=== PATIENT | male | born 2000 | race African-American/Black ===

== ENCOUNTER 2020-04-22 13:15 | Emergency (ER) | payer OTHER ==
[2020-04-22 13:29] VITALS: BP 141/71
--- NOTE | 2020-04-22 13:46 | ED Physician Documentation ---
History of Present Illness - Stated complaint Stated Complaint: SOA/C RULE OUT - Chief complaint Chief Complaint: Resp - History obtained from History obtained from: Patient - History of Present Illness Timing: Prior to arrival, How many hours ago Pain level max: 8 - Additonal information Additional information: 19-year-old male presents to the emergency department for evaluation of feeling short of breath. He is in the [place] and just arrived in [place] from [place]. While in [place] he admits to attending large gatherings. This morning about 2 AM he felt restless in bed and was tossing and turning. This morning [place] went [place] [facility] [place] Com[place] COVID testing. However patient continued to feel like he was short of air therefore he was brought to the emergency department. In route with EMS he was given a breathing treatment which he reports resolved his symptoms. He does have a history of asthma but has not taken any medications for more than 4 years. He is not a smoker. Patient has no pleuritic chest pain. No unilateral leg swelling. No hemoptysis. Recently traveled to [place] via airplane but short flight. No history of PE or DVT. Patient denies fevers chills body aches. He has no loss of taste or smell. He does endorse a mild dry cough that began this a.m. Review of Systems Constitutional: denies: Fever, Chills, Myalgias Ears: denies: Loss of hearing, Ear pain, Drainage/discharge Nose: reports: Other (No loss of taste or smell). denies: Rhinorrhea / runny nose Cardiac: denies: Chest pain / pressure, Palpitations, Pedal edema, Calf pain Respiratory: reports: Dyspnea, Cough. denies: Hemoptysis, Wheezing GI: denies: Abdominal Pain, Abdominal Swelling, Nausea, Vomiting : denies: Dysuria Skin: denies: Rash, Lesions Neurologic: denies: Generalized weakness, Syncope, Seizure PD PAST MEDICAL HISTORY - Past Medical History Past Medical History: Yes Respiratory: Asthma - Past Surgical History Past Surgical History: No - Present Medications Home Medications: Ambulatory Orders Medication Instructions Recorded Confirmed Albuterol Sulf [Ventolin Hfa 1 - 2 puffs INH Q4HR PRN #1 inhaler 04/22/20 Inhaler] - Allergies Allergies/Adverse Reactions: Allergies Allergy/AdvReac Type Severity Reaction Status Date / Time Penicillins Allergy Rash Verified 04/22/20 13:29 - Social History Does the pt smoke?: No Smoking Status: Never smoker Does the pt drink ETOH?: Yes Does the pt have substance abuse?: No - Immunizations Immunizations are current?: No - POLST Patient has POLST: No PD ED PE NORMAL - General General: Alert and oriented X 3, No acute distress, Well developed/nourished - HEENT HEENT: PERRL, EOMI, Ears normal - Neck Neck: Supple, no meningeal sign, No adenopathy - Cardiac Cardiac: RRR, No murmur, No gallop - Respiratory Respiratory: No respiratory distress, Clear bilaterally - Abdomen Abdomen: Normal bowel sounds, Soft, Non tender, Non distended - Back Back: No CVA TTP, No spinal TTP - Derm Derm: Normal color - Neuro Neuro: Alert and oriented X 3, 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 This is a subjective finding only. - Patient has COVID-19 testing pending that was completed at the [facility]. - On exam he is not hypoxic. He is speaking in full sentences and has an labored non-tachypneic respirations. - He does report a history of asthma and feels that the albuterol given in route helped his symptoms. - Will defer pulmonary imaging at this time as he is not hypoxic has and has normal breath sounds - pt is PERC and wells criteria negative. low suspicion for PE - I do not feel that he would benefit from laboratory testing at this time as his exam is otherwise very normal. Will prescribe albuterol inhaler for use as needed at the [facility]. He is to remain in quarantine until his COVID-19 tests are known. Return precautions discussed for worsening symptoms. Departure - Departure Disposition: 01 Home, Self Care Clinical Impression: History of asthma Dyspnea Qualifiers: Dyspnea type: unspecified Qualified Code(s): R06.00 - Dyspnea, unspecified Condition: Stable Instructions: ED Dyspnea Shortness of Breath Prescriptions: Albuterol Sulf [Ventolin Hfa Inhaler] 1 - 2 puffs INH Q4HR PRN #1 inhaler PRN Reason: Shortness Of Air/Wheezing Comments: [place] and remain in quarantine until your COVID-19 tests are known. Your vital signs are normal today. Your lungs sound normal. I have prescribed an albuterol inhaler to help you with your shortness of breath since she reports that the medication given to you by the paramedics improved your symptoms. If you feel that your symptoms are worsening you cannot speak in full sentences have fevers or productive cough please return to the emergency department for further evaluation.
== END 2020-04-22 13:58 | disposition home or self-care (01) ==
LOC: ED 13:15
DX: J45.909 Unspecified asthma, uncomplicated (principal)
CPT/HCPCS: 99282; 99283

== ENCOUNTER 2021-10-03 13:31 | Emergency (ER) | payer OTHER ==
--- NOTE | 2021-10-03 14:43 | ED Physician Documentation ---
PD HPI ABD PAIN - Stated complaint Stated Complaint: ABD PX - Chief complaint Chief Complaint: Abd Pain - History obtained from History obtained from: Patient - Additional information Additional information: He is not a daily drinker but the last 2 nights he was drinking and woke up this morning with epigastric pain and vomiting. Not too bad. He was worried that he has alcohol poisoning. He also notes that yesterday he had some blood on the toilet paper with rectal pain. That is never happened to him before. Finally he also has inflamed nasal turbinate on the left that has failed topical steroid therapy and wonders what can be done. That has been going on for years. Review of Systems Constitutional: denies: Fever, Chills Cardiac: reports: Reviewed and negative Respiratory: reports: Reviewed and negative PD PAST MEDICAL HISTORY - Past Medical History Respiratory: Asthma - Past Surgical History Past Surgical History: No - Present Medications Home Medications: Ambulatory Orders Medication Instructions Recorded Confirmed Albuterol Sulf [Ventolin Hfa 1 - 2 puffs INH Q4HR PRN #1 inhaler 04/22/20 Inhaler] - Allergies Allergies/Adverse Reactions: Allergies Allergy/AdvReac Type Severity Reaction Status Date / Time Penicillins Allergy Rash Verified 10/03/21 13:47 - Social History Does the pt smoke?: No Smoking Status: Never smoker Does the pt drink ETOH?: Yes Does the pt have substance abuse?: No - Immunizations Immunizations are current?: No - POLST Patient has POLST: No PD ED PE NORMAL - Vitals Vital signs reviewed: Yes - General General: Alert and oriented X 3, No acute distress - Abdomen Abdomen: Normal bowel sounds, Soft, Non tender - Male Male : Other (He does have a small rectal fissure without tenderness or hemorrhoid, no active bleeding) - Neuro Neuro: Alert and oriented X 3, Normal speech Results - Vitals Vitals: Vital Signs - 24 hr 10/03/21 10/03/21 13:39 14:47 Temperature 36.5 C 36.6 C Heart Rate 69 64 Respiratory 16 16 Rate Blood Pressure 121/84 H 122/57 L O2 Saturation 99 100 Oxygen O2 Source Room air PD MEDICAL DECISION MAKING - ED course ED course: Gentleman with multiple complaints. He was reassured that he is not having alcohol poisoning at this point, but probably does have a little bit of alcoholic gastritis and just needs to lay off the alcohol for a bit. Also has a rectal fissure which seems minor and conservative care for that was advised as well and he had an ancillary complaint of a large nasal turbinate that did not respond to topical steroids and as such discussed he can follow-up with ENT at his leisure. Departure - Departure Disposition: 01 Home, Self Care Clinical Impression: Rectal fissure, Nasal turbinate hypertrophy Condition: Good Record reviewed to determine appropriate education?: Yes Instructions: ED Fissure Anal Ch Comments: As discussed for the rectal fissure, that should heal well without specific therapy. Just drink plenty of fluids so you keep your stools soft.. For the inflamed nasal turbinates since you have failed conservative therapy with nasal steroids you could ask your doctor to refer you to an hearing officer. The closest is in [place], the phone number is [phone]. Return for new or worsening symptoms. Do not drink alcohol for a few days. Forms: Activity restrictions Discharge Date/Time: 10/03/21 14:48
[2021-10-03 14:48] VITALS: BP 122/57
== END 2021-10-03 14:48 | disposition home or self-care (01) ==
LOC: ED 13:31
DX: K60.2 Anal fissure, unspecified (principal); J34.3 Hypertrophy of nasal turbinates
CPT/HCPCS: 99281; 99282

== ENCOUNTER 2022-09-11 17:09 | Emergency (ER) | payer OTHER ==
[2022-09-11 18:31] LABS: BASOPHILS % (AUTO) 0.6 %; EOSINOPHILS # (AUTO) 0.6 10^3/uL (0.0-0.7); EOSINOPHILS % (AUTO) 9.2 %; HCT - HEMATOCRIT 45.5 % (42.0-52.0); HGB - HEMOGLOBIN 15.2 g/dL (14.0-18.0); LYMPHOCYTES # (AUTO) 2.7 10^3/uL (1.5-3.5); LYMPHOCYTES % (AUTO) 43.8 %; MEAN CORPUSCULAR HEMOGLOBIN 27.2 pg (27.0-31.0); MEAN CORPUSCULAR HGB CONC 33.4 g/dL (32.0-36.0); MEAN CORPUSCULAR VOLUME 81.4 fL (80.0-94.0); MONOCYTES # (AUTO) 0.5 10^3/uL (0.0-1.0); MONOCYTES % (AUTO) 8.6 %; NEUTROPHILS # (AUTO) 2.3 10^3/uL (1.5-6.6); NEUTROPHILS % (AUTO) 37.5 %; PLT - PLATELET COUNT 285 10^3/uL (130-450); RED BLOOD COUNT 5.59 10^6/uL (4.70-6.10); RED CELL DISTRIBUTION WIDTH 13.6 % (12.0-15.0); WHITE BLOOD COUNT 6.2 x10^3/uL (4.8-10.8)
[2022-09-11 18:44] LABS: ALBUMIN 4.7 g/dL (3.2-5.5); ALBUMIN/GLOBULIN RATIO 1.1 (1.0-2.2); BILIRUBIN,TOTAL 0.7 mg/dL (0.2-1.0); CALCIUM 9.9 mg/dL (8.5-10.3); CREATININE 1.1 mg/dL (0.6-1.2); POTASSIUM 4.2 mmol/L (3.5-5.0); TOTAL PROTEIN 8.9 g/dL (6.7-8.2)
[2022-09-11] MEDS ORDERED: KETOROLAC 30 MG/ML VIAL IVP STA (18:46)
[2022-09-11] MEDS ORDERED: ONDANSETRON 4 MG/2 ML VIAL IVP STA (18:46)
[2022-09-11] MEDS ORDERED: SODIUM CHLORIDE 0.9% 1,000 ML IV STA (18:46)
--- NOTE | 2022-09-11 18:51 | ED Physician Documentation ---
History of Present Illness - Stated complaint Stated Complaint: NAUSEA,H/A - Chief complaint Chief Complaint: Abd Pain - History obtained from History obtained from: Patient - History of Present Illness Timing: Today Pain level max: 3 Pain level now: 3 - Additonal information Additional information: Patient is a 21-year-old male who presents to the emergency department with abdominal pain, nausea, vomiting and a headache today. He states that he did drink alcohol last night, approximately 5 shots and as well as several other alcoholic drinks. Worse with eating and drinking. Nothing makes it better. He states that that is not an unusual amount of alcohol for him. No fevers. No chills. Review of Systems Constitutional: denies: Fever, Chills Nose: denies: Rhinorrhea / runny nose, Congestion Respiratory: denies: Cough GI: reports: Abdominal Pain (Mild, epigastric, cramping), Nausea, Vomiting. denies: Hematemesis, Bloody / black stool : denies: Dysuria Skin: denies: Rash Musculoskeletal: denies: Neck pain, Back pain Neurologic: reports: Headache (Gradual onset, dull, aching, 3 out of 10) PD PAST MEDICAL HISTORY - Past Medical History Past Medical History: Yes Cardiovascular: None Respiratory: Asthma Neuro: None Endocrine/Autoimmune: None GI: None : None HEENT: None Psych: None Musculoskeletal: None Derm: None - Past Surgical History Past Surgical History: No - Present Medications Home Medications: Ambulatory Orders Medication Instructions Recorded Confirmed Albuterol Sulf [Ventolin Hfa 1 - 2 puffs INH Q4HR PRN #1 inhaler 04/22/20 09/11/22 Inhaler] Ondansetron Odt [Zofran] 4 mg TL Q6H PRN #10 tablet 09/11/22 - Allergies Allergies/Adverse Reactions: Allergies Allergy/AdvReac Type Severity Reaction Status Date / Time Penicillins Allergy Rash Verified 09/11/22 17:20 - Social History Does the pt smoke?: No Smoking Status: Never smoker Does the pt drink ETOH?: Yes Does the pt have substance abuse?: No - Immunizations Immunizations are current?: Yes - POLST Patient has POLST: No PD ED PE NORMAL - Vitals Vital signs reviewed: Yes - General General: Alert and oriented X 3, No acute distress - HEENT HEENT: Atraumatic, PERRL, Moist mucous membranes - Neck Neck: Supple, no meningeal sign - Cardiac Cardiac: RRR, Strong equal pulses - Respiratory Respiratory: No respiratory distress, Clear bilaterally - Abdomen Abdomen: Soft, Non tender, Non distended - Back Back: No CVA TTP, No spinal TTP - Derm Derm: Warm and dry - Extremities Extremities: No edema - Neuro Neuro: Alert and oriented X 3, rn emergency 2-12 intact, No motor deficit, No sensory deficit, Normal speech Eye Opening: Spontaneous Motor: Obeys Commands Verbal: Oriented GCS Score: 15 - Psych Psych: Normal mood, Normal affect Results - Vitals Vitals: Vital Signs - 24 hr 09/11/22 09/11/22 17:17 19:03 Temperature 36.6 C Heart Rate 77 76 Respiratory 16 16 Rate Blood Pressure 142/77 H 126/86 H O2 Saturation 100 100 Oxygen O2 Source Room air - Labs Labs: Laboratory Tests 09/11/22 09/11/22 09/11/22 18:24 18:24 19:10 WBC 6.2 RBC 5.59 Hgb 15.2 Hct 45.5 MCV 81.4 MCH 27.2 MCHC 33.4 RDW 13.6 Plt Count 285 MPV 10.0 Neut # (Auto) 2.3 Lymph # (Auto) 2.7 [place] # (Auto) 0.5 Eos # (Auto) 0.6 Baso # (Auto) 0.0 Absolute Nucleated RBC 0.00 Nucleated RBC % 0.0 Sodium 139 Potassium 4.2 Chloride 102 Carbon Dioxide 27 Anion Gap 10.0 BUN 18 Creatinine 1.1 Estimated GFR (MDRD) 101 Glucose 82 Calcium 9.9 Total Bilirubin 0.7 AST 19 ALT 13 Alkaline Phosphatase 54 Total Protein 8.9 H Albumin 4.7 Globulin 4.3 H Albumin/Globulin Ratio 1.1 Lipase 24 Urine Color YELLOW Urine Clarity CLEAR Urine pH 7.0 Ur Specific [place] 1.010 Urine Protein NEGATIVE Urine Glucose (UA) NEGATIVE Urine Ketones NEGATIVE Urine Occult Blood NEGATIVE Urine Nitrite NEGATIVE Urine Bilirubin NEGATIVE Urine Urobilinogen 0.2 (NORMAL) Ur Leukocyte Esterase NEGATIVE Ur Microscopic Review NOT INDICATED Urine Culture Comments NOT INDICATED PD MEDICAL DECISION MAKING - ED course Complexity details: reviewed results, re-evaluated patient, considered differential, d/w patient ED course: No significant lab abnormalities. Patient declines an IV. We will continue supportive care and have him follow-up with his doctor. Patient requests a work note. States he has to work tonight. Patient is well-appearing, nontoxic. Afebrile. Abdomen soft, nontender nondistended. Patient counseled regarding signs and symptoms for which I believe and urgent re-evaluation would be necessary. Patient with good understanding of and agreement to plan and is comfortable going home at this time This document was made in part using voice recognition software. While efforts are made to proofread this document, sound alike and grammatical errors may occur. Departure - Departure Disposition: 01 Home, Self Care Clinical Impression: Vomiting Qualifiers: Vomiting type: unspecified Nausea presence: with nausea Qualified Code(s): R11.2 - Nausea with vomiting, unspecified Condition: Good Instructions: ED Nausea Vomiting Follow-Up: your,doctor as needed [Other] Prescriptions: Ondansetron Odt [Zofran] 4 mg TL Q6H PRN #10 tablet PRN Reason: Nausea / Vomiting Comments: Your prescription was sent to [facility] in [place]. Drink plenty of fluids. Follow-up with your doctor for further care. Forms: Activity restrictions Discharge Date/Time: 09/11/22 19:35
[2022-09-11] MEDS ORDERED: ONDANSETRON ODT 4 MG TABLET TL STA (18:57)
[2022-09-11] MEDS ORDERED: ACETAMINOPHEN 325 MG TABLET PO STA (18:57)
[2022-09-11 19:04] VITALS: BP 126/86
[2022-09-11 19:17] LABS: BILIRUBIN,URINE NEGATIVE (NEGATIVE); GLUCOSE, URINE (UA) NEGATIVE (NEGATIVE); KETONES,URINE (UA) NEGATIVE (NEGATIVE); LEUKOCYTE ESTERASE, URINE NEGATIVE (NEGATIVE); NITRITE,URINE NEGATIVE (NEGATIVE); OCCULT BLOOD,URINE NEGATIVE (NEGATIVE); PROTEIN,URINE NEGATIVE (NEGATIVE); UROBILINOGEN,URINE 0.2 (NORMAL) E.U./dL (NORMAL)
[2022-09-11 19:18] LABS: CLARITY,URINE CLEAR (CLEAR)
== END 2022-09-11 19:35 | disposition home or self-care (01) ==
LOC: ED 17:09
DX: R11.2 Nausea with vomiting, unspecified (principal)
CPT/HCPCS: 36415; 80053; 81003; 83690; 85025; 99282; 99283; A9270; Q0162; 81001; 87086

== ENCOUNTER 2022-11-28 14:33 | Outpatient (CLI) | payer OTHER | END 2022-11-28 14:34 | disposition critical access hospital (66) | LOC: EMS 14:33 | DX: J02.9 Acute pharyngitis, unspecified (principal); R05.9 Cough, unspecified; R50.9 Fever, unspecified; R52 Pain, unspecified | CPT/HCPCS: A0425; A0429 ==

== ENCOUNTER 2022-11-28 14:53 | Emergency (ER) | payer OTHER ==
[2022-11-28] MEDS ORDERED: DEXAMETHASONE 10 MG/ML VIAL PO STA (15:06)
[2022-11-28] MEDS ORDERED: CHERRY SYRUP 10 ML UDC PO ONE (15:06)
[2022-11-28] MEDS ORDERED: IBUPROFEN 100 MG/5 ML UDC PO STA (15:06)
--- NOTE | 2022-11-28 15:09 | ED Physician Documentation ---
History of Present Illness - Stated complaint Stated Complaint: SORE THROAT - Chief complaint Chief Complaint: Heent - Additonal information Additional information: 22-year-old male presents to the emergency department via EMS for evaluation of sore throat and body aches. Symptoms began yesterday. He took 1 ibuprofen at home but had none other. The body aches concerned him and he did not feel safe driving thus he calls 911. He denies any sick contacts. No vomiting or diarrhea. He has normal phonation. No trismus. Denies any history of recurrent strep throat. He is not yet vaccinated for the flu. He is vaccinated for COVID. Review of Systems Constitutional: reports: Myalgias, Fatigue. denies: Fever Nose: reports: Congestion Throat: reports: Sore throat. denies: Dental pain / toothache, Oral lesions / sores Cardiac: reports: Reviewed and negative Respiratory: denies: Dyspnea, Cough GI: reports: Reviewed and negative : reports: Reviewed and negative PD PAST MEDICAL HISTORY - Past Medical History Past Medical History: Yes Cardiovascular: None Respiratory: Asthma Neuro: None Endocrine/Autoimmune: None GI: None : None HEENT: None Psych: None Musculoskeletal: None Derm: None - Past Surgical History Past Surgical History: No - Present Medications Home Medications: Ambulatory Orders Medication Instructions Recorded Confirmed Albuterol Sulf [Ventolin Hfa 1 - 2 puffs INH Q4HR PRN #1 inhaler 04/22/20 11/28/22 Inhaler] cephALEXin [Keflex] 500 mg PO BID #14 cap 11/28/22 - Allergies Allergies/Adverse Reactions: Allergies Allergy/AdvReac Type Severity Reaction Status Date / Time Penicillins Allergy Rash Verified 11/28/22 15:01 - Social History Does the pt smoke?: No Smoking Status: Never smoker Does the pt drink ETOH?: Yes Does the pt have substance abuse?: No - Immunizations Immunizations are current?: Yes - POLST Patient has POLST: No PD ED PE NORMAL - General General: Alert and oriented X 3, No acute distress, Well developed/nourished - HEENT HEENT: Atraumatic, Ears normal, Moist mucous membranes. No: Pharynx benign (Chronically and lower large tonsils/hypertrophy. No exudate. Posterior oropharynx is beefy red. Uvula is midline. No dysphonia. No trismus. 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 Eye Opening: Spontaneous Motor: Obeys Commands Verbal: Oriented GCS Score: 15 Results - Vitals Vitals: Vital Signs - 24 hr 11/28/22 11/28/22 15:01 15:44 Temperature 37.1 C 37.2 C Heart Rate 99 84 Respiratory 16 16 Rate Blood Pressure 126/75 122/84 H O2 Saturation 99 100 Oxygen O2 Source Room air - Labs Labs: Laboratory Tests 11/28/22 11/28/22 15:00 15:00 Influenza A (Rapid) Negative Influenza B (Rapid) Negative Group A Strep Rapid POSITIVE H PD Medical Decision Making - ED course Complexity details: reviewed results, re-evaluated patient, considered differential, d/w patient ED course: 22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 Clinically on exam he has not fairly erythematous posterior oropharynx but no secondary findings suggest peritonsillar abscess. Normal phonation and tolerating oral secretions with full range of motion of the neck. Doubt retropharyngeal abscess. Influenza testing was negative however his rapid strep is positive. Patient does have a penicillin allergy therefore we will treat him with Keflex twice daily for the next 10 days. This prescription sent to his preferred pharmacy. He was administered a dose of Decadron orally for throat pain and discomfort. He is advised Tylenol and ibuprofen [id number] for discomfort. We discussed the usual emergent return precautions. Departure - Departure Disposition: 01 Home, Self Care Clinical Impression: Strep pharyngitis Condition: Stable Record reviewed to determine appropriate education?: Yes Prescriptions: cephALEXin [Keflex] 500 mg PO BID #14 cap Comments: You came to the emergency department because you have had some body aches chills and a sore throat that began yesterday. Here in the emergency department your influenza testing was negative. However your rapid strep test was positive. In order to help manage your condition we are starting you on an antibiotic called Keflex. You will take this twice daily for the next 10 days. You are also given a single dose of Decadron here in the emergency department which should help with pain and inflammation over the next few days. I do recommend that you take Tylenol or ibuprofen [id number] for discomfort. Can gargle with warm salt water. In general I would expect with the antibiotics your symptoms are feeling markedly better over the next 48 to 72 hours. If any point you develop inability to tolerate your oral secretions or swallow, have a high-pitched voice, cannot open your mouth fully and please return immediately to the ER for a second evaluation.
[2022-11-28 15:25] LABS: RAPID STREP SCREEN POSITIVE (Negative)
[2022-11-28 15:45] VITALS: BP 122/84
[2022-11-28] MEDS ORDERED: cephALEXin 250 MG CAPSULE PO STA (15:49)
== END 2022-11-28 15:57 | disposition home or self-care (01) ==
LOC: EDUNIT# → ED 14:53
DX: J02.0 Streptococcal pharyngitis (principal); Z88.0 Allergy status to penicillin
CPT/HCPCS: 87275; 87276; 87430; 99283; A9270

== ENCOUNTER 2023-02-14 19:23 | Emergency (ER) | payer OTHER ==
[2023-02-14 20:02] VITALS: BP 129/73
--- NOTE | 2023-02-14 21:38 | ED Physician Documentation ---
PD HPI URI - Stated complaint Stated Complaint: THROAT PX - Chief complaint Chief Complaint: Heent - History obtained from History obtained from: Patient (22-year-old gentleman who had strep a couple months ago presents with sore throat since yesterday worried that he has strep again. He had some subjective fevers this morning. No cough.) PD PAST MEDICAL HISTORY - Past Medical History Cardiovascular: None Respiratory: Asthma Neuro: None Endocrine/Autoimmune: None GI: None : None HEENT: None Psych: None Musculoskeletal: None Derm: None Other Past Medical History: Sickle cell trait - Past Surgical History Past Surgical History: No - Present Medications Home Medications: Ambulatory Orders Medication Instructions Recorded Confirmed Albuterol Sulf [Ventolin Hfa 1 - 2 puffs INH Q4HR PRN #1 inhaler 04/22/20 02/14/23 Inhaler] - Allergies Allergies/Adverse Reactions: Allergies Allergy/AdvReac Type Severity Reaction Status Date / Time Penicillins Allergy Rash Verified 02/14/23 20:02 - Social History Does the pt smoke?: No Smoking Status: Never smoker Does the pt drink ETOH?: Yes Does the pt have substance abuse?: No - Immunizations Immunizations are current?: Yes - POLST Patient has POLST: No PD ED PE NORMAL - Vitals Vital signs reviewed: Yes - General General: Alert and oriented X 3, No acute distress - HEENT HEENT: Other (Red tonsillar pillars without exudate. No swelling.) - Neck Neck: Supple, no meningeal sign, No bony TTP - Neuro Neuro: Alert and oriented X 3, Normal speech - Psych Psych: Normal mood, Normal affect Results - Vitals Vitals: Vital Signs - 24 hr 02/14/23 02/14/23 20:00 21:44 Temperature 36.4 C L Heart Rate 80 Respiratory 15 16 Rate Blood Pressure 129/73 O2 Saturation 99 Oxygen O2 Source Room air - Labs Labs: Laboratory Tests 02/14/23 21:34 Group A Strep Rapid Negative Departure - Departure Disposition: Home, Self Care Clinical Impression: Sore throat Condition: Good Record reviewed to determine appropriate education?: Yes Instructions: ED Pharyngitis Viral Report Pending Comments: Your rapid strep test is negative. That does not completely rule out a bacterial cause of your sore throat we will perform a throat culture. If positive we will call you in the next couple of days and call you on antibiotics. Return for new or worsening symptoms. You can take ibuprofen as needed for the pain. Forms: Activity restrictions Discharge Date/Time: 02/14/23 22:05
[2023-02-14 21:49] LABS: RAPID STREP SCREEN Negative (Negative)
== END 2023-02-14 22:05 | disposition home or self-care (01) ==
LOC: ED 19:23
DX: J02.9 Acute pharyngitis, unspecified (principal)
CPT/HCPCS: 87070; 87430; 99282; 99283

== ENCOUNTER 2023-04-17 02:06 | Emergency (ER) | payer OTHER ==
[2023-04-17] MEDS ORDERED: KETOROLAC 60 MG/2 ML VIAL IM STA (02:48)
--- NOTE | 2023-04-17 02:50 | ED Physician Documentation ---
PD HPI HEADACHE - Stated complaint Stated Complaint: HEAD PX - Chief complaint Chief Complaint: Heent - History obtained from History obtained from: Patient - Additional information Additional information: Patient is a 22-year-old male with a history of migraines presenting for evaluation of a frontal headache that is been present since Monday afternoon. Patient denies any exertion at onset. States that it is gradually been worsening. He tried 1 tablet of regular strength Tylenol twice this afternoon without any improvement. 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 Does not take a blood thinner. Review of Systems Constitutional: denies: Fever Cardiac: denies: Chest pain / pressure Respiratory: denies: Dyspnea GI: denies: Abdominal Pain Neurologic: reports: Headache PD PAST MEDICAL HISTORY - Past Medical History Cardiovascular: None Respiratory: Asthma Neuro: None Endocrine/Autoimmune: None GI: None : None HEENT: None Psych: None Musculoskeletal: None Derm: None - Past Surgical History Past Surgical History: No - Present Medications Home Medications: Ambulatory Orders Medication Instructions Recorded Confirmed Albuterol Sulf [Ventolin Hfa 1 - 2 puffs INH Q4HR PRN #1 inhaler 04/22/20 02/14/23 Inhaler] - Allergies Allergies/Adverse Reactions: Allergies Allergy/AdvReac Type Severity Reaction Status Date / Time Penicillins Allergy Rash Verified 02/14/23 20:02 - Social History Does the pt smoke?: No Smoking Status: Never smoker Does the pt drink ETOH?: Yes Does the pt have substance abuse?: No - Immunizations Immunizations are current?: Yes - POLST Patient has POLST: No PD ED PE NORMAL - General General: Alert and oriented X 3, No acute distress, Well developed/nourished - HEENT HEENT: Atraumatic, PERRL, EOMI, Moist mucous membranes, Pharynx benign - Neck Neck: Supple, no meningeal sign - Cardiac Cardiac: RRR, No murmur - Respiratory Respiratory: No respiratory distress, Clear bilaterally - Abdomen Abdomen: Soft, Non tender - Derm Derm: Warm and dry - Extremities Extremities: No edema - Neuro Neuro: Alert and oriented X 3, 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 Not thunderclap, sudden headache or worst headache of his life. No associated symptoms such as nausea or vomiting, fever, nuchal rigidity. Patient is overall well-appearing with normal neuro exam. Appears comfortable with exam room lights on.Has only tried small doses of acetaminophen. Patient was given IM Toradol with significant improvement in his symptoms. Patient also requested additional dose of acetaminophen prior to discharge. Based on history and exam I do not think patient has symptoms to suggest a subarachnoid hemorrhage or meningitis. The patient was counseled to continue with supportive care as well as [facility] He is advised on concerning symptoms to return for. Departure - Departure Disposition: 01 Home, Self Care Clinical Impression: Headache Condition: Stable Instructions: ED Cephalgia Unspecified Follow-Up: BELA Nguyen [Provider Group] - Within 1 week Comments: Please make sure you stay hydrated, get plenty of rest. You can continue with acetaminophen or ibuprofen as needed for any continued pain. If you develop any worsening symptoms please consider return to the ER. Forms: Activity restrictions
[2023-04-17] MEDS ORDERED: ACETAMINOPHEN 500 MG TABLET PO STA (03:55)
[2023-04-17 04:16] VITALS: BP 127/81
== END 2023-04-17 04:12 | disposition home or self-care (01) ==
LOC: ED 02:06
DX: R51.9 Headache, unspecified (principal)
CPT/HCPCS: 96372; 99283; A9270

== ENCOUNTER 2023-04-27 10:30 | Outpatient (CLI) | payer OTHER ==
[2023-04-27 20:25] LABS: CHLAMYDIA TRACHOMATIS DNA NEGATIVE (NEGATIVE); TRICHOMONAS VAGINALIS DNA NEGATIVE (NEGATIVE)
[2023-04-27 20:26] LABS: NEISSERIA GONORRHOEAE DNA POSITIVE (NEGATIVE)
[2023-04-29 03:09] LABS: RPR Non Reactive (Non Reactive)
[2023-04-29 04:08] LABS: HIV SCREEN 4TH GENERATION Non Reactive (Non Reactive)
== END 2023-04-27 10:45 | disposition home or self-care (01) ==
LOC: LAB.N 10:30
PROVIDERS: ATTEND Specialist
DX: R36.9 Urethral discharge, unspecified (principal)
CPT/HCPCS: 86592; 87389; 87491; 87591; 87661

== ENCOUNTER 2023-05-15 09:21 | Emergency (ER) | payer OTHER ==
[2023-05-15 09:56] LABS: BASOPHILS % (AUTO) 0.7 %; EOSINOPHILS # (AUTO) 0.5 10^3/uL (0.0-0.7); EOSINOPHILS % (AUTO) 9.6 %; HCT - HEMATOCRIT 47.2 % (42.0-52.0); HGB - HEMOGLOBIN 15.6 g/dL (14.0-18.0); LYMPHOCYTES # (AUTO) 2.4 10^3/uL (1.5-3.5); LYMPHOCYTES % (AUTO) 43.4 %; MEAN CORPUSCULAR HEMOGLOBIN 27.4 pg (27.0-31.0); MEAN CORPUSCULAR HGB CONC 33.1 g/dL (32.0-36.0); MEAN CORPUSCULAR VOLUME 82.8 fL (80.0-94.0); MEAN PLATELET VOLUME 10.3 fL (7.4-11.4); MONOCYTES # (AUTO) 0.5 10^3/uL (0.0-1.0); MONOCYTES % (AUTO) 8.8 %; NEUTROPHILS % (AUTO) 37.3 %; PLT - PLATELET COUNT 297 10^3/uL (130-450); RED CELL DISTRIBUTION WIDTH 13.3 % (12.0-15.0); WHITE BLOOD COUNT 5.4 x10^3/uL (4.8-10.8)
--- NOTE | 2023-05-15 10:07 | ED Physician Documentation ---
PD HPI CHEST PAIN - Stated complaint Stated Complaint: SOA,CHEST PX - Chief complaint Chief Complaint: Cardiac - History obtained from History obtained from: Patient - Additional information Additional information: Otherwise healthy 22-year-old gentleman with asthma developed some sharp chest pain this morning that is worse with leaning forward or deep breathing. He was short of breath with it. No personal family history of heart disease. No pedal edema or calf pain. No cough or hemoptysis. He went to the walk-in clinic where an EKG was concerning for pericarditis and referred here for further evaluation and treatment. PD PAST MEDICAL HISTORY - Past Medical History Cardiovascular: None Respiratory: Asthma Neuro: None Endocrine/Autoimmune: None GI: None : None HEENT: None Psych: None Musculoskeletal: None Derm: None - Past Surgical History Past Surgical History: No - Present Medications Home Medications: Ambulatory Orders Medication Instructions Recorded Confirmed Albuterol Sulf [Ventolin Hfa 1 - 2 puffs INH Q4HR PRN #1 inhaler 04/22/20 05/15/23 Inhaler] Colchicine [Colcrys] 0.6 mg PO DAILY #90 tablet 05/15/23 Ibuprofen [Motrin] 600 mg PO Q6H PRN #30 tab 05/15/23 - Allergies Allergies/Adverse Reactions: Allergies Allergy/AdvReac Type Severity Reaction Status Date / Time Penicillins Allergy Rash Verified 05/15/23 09:25 - Social History Does the pt smoke?: No Smoking Status: Never smoker Does the pt drink ETOH?: Yes Does the pt have substance abuse?: No - Immunizations Immunizations are current?: Yes - POLST Patient has POLST: No PD ED PE NORMAL - Vitals Vital signs reviewed: Yes - General General: Alert and oriented X 3, No acute distress - Neck Neck: Supple, no meningeal sign, No bony TTP - Cardiac Cardiac: RRR, No murmur - Respiratory Respiratory: No respiratory distress, Clear bilaterally - Abdomen Abdomen: Non tender - Extremities Extremities: No edema, No calf tenderness / cord - Neuro Neuro: Alert and oriented X 3, Normal speech Results - Vitals Vitals: Vital Signs - 24 hr 05/15/23 05/15/23 09:25 10:50 Temperature 36.9 C 37.1 C Heart Rate 77 67 Respiratory 16 14 Rate Blood Pressure 130/76 147/88 H O2 Saturation 98 98 Oxygen O2 Source Room air - EKG (time done) 0948 EKG releavant findings:: EKG personally interpreted by author of this note. Relevant findings are: Rate: Rate (enter#) (71) Rhythm: NSR [place]: Normal Intervals: Normal IA QRS: Normal Ischemia: Other (ROGER diffuse c/w pericarditis) Computer interpretation: Agree with computer - Labs Labs: Laboratory Tests 05/15/23 05/15/23 05/15/23 09:49 09:49 09:49 WBC 5.4 RBC 5.70 Hgb 15.6 Hct 47.2 MCV 82.8 MCH 27.4 MCHC 33.1 RDW 13.3 Plt Count 297 MPV 10.3 Neut # (Auto) 2.0 Lymph # (Auto) 2.4 [place] # (Auto) 0.5 Eos # (Auto) 0.5 Baso # (Auto) 0.0 Absolute Nucleated RBC 0.00 Nucleated RBC % 0.0 Sodium 140 Potassium 3.9 Chloride 104 Carbon Dioxide 29 Anion Gap 7.0 BUN 14 Creatinine 1.1 Estimated GFR (MDRD) 101 Glucose 90 Calcium 10.5 H Total Bilirubin 0.8 AST 22 ALT 11 Alkaline Phosphatase 56 Troponin I High Sens 3.4 Total Protein 8.7 Albumin 4.9 Globulin 3.8 Albumin/Globulin Ratio 1.3 Lipase 20 PD Medical Decision Making - ED course ED course: 22-year-old gentleman with pericarditis. No evidence of myopericarditis with negative troponin. CBC and CMP were otherwise unremarkable. We will start colchicine, up-to-date reviewed and note the colchicine dosing is borderline as he weighs 69.9 kg and the cutoff for twice daily versus daily is 70 kg. Otherwise he will be treated with NSAIDs. Departure - Departure Disposition: 01 Home, Self Care Clinical Impression: Pericarditis Qualifiers: Pericarditis type: idiopathic Chronicity: acute Qualified Code(s): I30.0 - Acute nonspecific idiopathic pericarditis Condition: Good Record reviewed to determine appropriate education?: Yes Instructions: ED Chest Pain Pericarditis Prescriptions: Colchicine [Colcrys] 0.6 mg PO DAILY #90 tablet Ibuprofen [Motrin] 600 mg PO Q6H PRN #30 tab PRN Reason: Pain Comments: You were seen today for pericarditis which is an inflammation of the sac around the heart. There is no evidence of inflammation of the heart itself. I am prescribing 2 medications. Ibuprofen which will help with the discomfort and pain and colchicine which should make it go away faster. Call your doctor to arrange a follow-up appointment, make the next available appointment. In the interim, return anytime if worse or if new symptoms develop. Discharge Date/Time: 05/15/23 10:51
[2023-05-15 10:12] LABS: ALBUMIN 4.9 g/dL (3.2-5.5); ALBUMIN/GLOBULIN RATIO 1.3 (1.0-2.2); BILIRUBIN,TOTAL 0.8 mg/dL (0.2-1.0); CALCIUM 10.5 mg/dL (8.5-10.3); CREATININE 1.1 mg/dL (0.6-1.3); POTASSIUM 3.9 mmol/L (3.5-4.5); TOTAL PROTEIN 8.7 g/dL (6.4-8.9)
[2023-05-15 10:54] VITALS: BP 147/88
--- NOTE | 2023-05-15 13:32 | XRAY Report ---
PROCEDURE: Chest 1 View X-Ray INDICATIONS: Chest Pain TECHNIQUE: One view of the chest was acquired. COMPARISON: None. FINDINGS: Surgical changes and devices: None. Lungs and pleura: No pleural effusions or pneumothorax. Lungs are clear. Mediastinum: Mediastinal contours appear normal. Heart size is normal. Bones and chest wall: No suspicious bony lesions. Overlying soft tissues appear unremarkable. IMPRESSION: No acute cardiopulmonary process. Reviewed by: Brayden Nunn MD on 05/15/2023 9:48 AM PDT Approved by: Brayden Nunn MD on 05/15/2023 9:48 AM PDT Station ID: [id number]
== END 2023-05-15 10:51 | disposition home or self-care (01) ==
LOC: ED 09:21
DX: I30.0 Acute nonspecific idiopathic pericarditis (principal)
CPT/HCPCS: 36415; 80053; 83690; 84484; 85025; 93005; 99284